=== PATIENT | male | born 1980 | race Caucasian/White ===

== ENCOUNTER → 2021-09-18 13:11 | Outpatient (BNVA) | payer MEDICAID, SELFPAY | PROVIDERS: Visit Provider Nurse Practitioner Family | DX: Z20.822 Contact with and (suspected) exposure to COVID-19 (principal); Z11.52 Encounter for screening for COVID-19 | CPT/HCPCS: 87635 ==

== ENCOUNTER 2021-12-08 11:37 | Outpatient (CLI) | payer MEDICAID, SELFPAY ==
--- NOTE | 2021-12-08 11:46 | XR_ITS ---
WS: [id number] XR cervical spine min 6V [id number] REASON FOR EXAM: M54.2 - Cervicalgia FINDINGS: Mild straightening of the normal lordosis of the cervical spine. No significant compression deformity or other focal vertebral body abnormality. Moderate narrowing of the intervertebral disc spaces C5-T1. This is most significant at C6-C7 and C7- T1. There is degenerative degenerative change in the facet joints at C7-T1. Mild to moderate uncinate 8 spurring bilaterally C5-T1. This is most prominent at C6-C7. There is a mild anterior subluxation of C4 on C5 with flexion. XR/XR cervical spine min 6V [id number] IMPRESSION: Multilevel cervical degenerative spondylosis as above.
== END 2021-12-08 11:38 | disposition home or self-care (01) ==
LOC: RAD 11:40
PROVIDERS: PCP Family Medicine; Visit Provider Family Medicine
DX: M47.812 Spondylosis without myelopathy or radiculopathy, cervical region (principal)
CPT/HCPCS: 72052

== ENCOUNTER 2022-01-05 11:03 | Emergency (ER) | payer BC, MEDICAID, SELFPAY ==
[2022-01-05 11:10] VITALS: BP 120/77; PULSE 79; RESP 16; TEMP 36.7; O2SAT 98; BMI 22.3
[2022-01-05 11:19] VITALS: BP 120/77; PULSE 79; RESP 16; TEMP 36.6; O2SAT 99
--- NOTE | 2022-01-05 11:19 | ED_ITS ---
HPI - Fall General: Chief Complaint: Fall Stated Complaint: Fell Time Seen by Provider: 01/05/22 11:17 Source: patient and family Mode of arrival: wheelchair Limitations: no limitations History of Present Illness: Patient is a nice 41-year-old male who presents to ED today with complaint of right shoulder and lower back pain following a slip and fall yesterday evening. Patient states he was going down icy stairs when he slipped and fell and landed directly onto his lower back. He states somehow he injured his right shoulder. Patient concerned because he has had a prior lower back surgery-does not know what type of surgery was performed. He states he has having pain to his right leg with ambulation. He denies striking his head or LOC. No neck or upper back pains. MD complaint: fall Onset (ago): hour(s) Fall from: down stairs (#) Fall witnessed: yes, by family Place fall occurred: home Loss of consciousness: None Prolonged down time: no Symptoms prior to fall: none Context: tripped/slipped (ice) Location of injury: back Location of injury - extremities: Right: shoulder Associated symptoms-after fall: Reports no associated symptoms; Denies abdominal pain, chest pain, headache(s), lightheadedness or neck pain Review of Systems Const: Denies: fever(s), chills, body aches, fatigue or malaise Eyes: Denies: change in vision or blurry vision Card: Denies: chest pain, palpitations, lightheadedness, syncope or pre- syncope Resp: Denies: dyspnea GI: Denies: abdominal pain Musc: Reports: back pain and joint pain (R shoulder); Denies: neck pain, extremity pain, extremity swelling, joint swelling, joint redness or joint warmth Neuro: Denies: headache(s), weakness in extremities, sensory changes, lack of coordination or frequent falls PFS ED PFSH: Medical History Sepsis Surgical History H/O skin graft History of back surgery Hx of right knee surgery Social History Smoking and tobacco status: current every day smoker Alcohol intake: never Household members: spouse Marital status: Current occupational status: employed 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 Special saeid needs: No Physical Exam Const: COMMON NORMALS: no acute distress, average body habitus, patient oriented x3, no limitations, healthy appearing, alert and well nourished ORIENTATION/CONSCIOUSNESS: Yes awake, Yes oriented to person, Yes oriented to place and Yes oriented to time HENMT: COMMON NORMALS: normocephalic and atraumatic HEAD & SCALP: normal to inspection, normocephalic and atraumatic FACE & SINUS: normal facial exam Neck/C-Spine: COMMON NORMALS: full ROM CERVICAL SPINE: Yes cervical ROM normal, No pain with cervical ROM, No Cervical spine tenderness, No step off deformity and No Paracervical muscle tenderness Chest: COMMONS NORMALS: normal inspection of the chest and normal palpation of entire chest wall Resp: COMMON NORMALS: normal respiratory effort and clear to auscultation bilaterally AUSCULTATION: clear to auscultation bilaterally Cardio: COMMON NORMALS: regular rate and regular rhythm RATE: regular rate RHYTHM: regular rhythm Back/Pelvis: THORACIC SPINE/UPPER BACK: Yes normal to inspection, Yes thoracic ROM normal and No thoracic spinal tenderness LUMBAR SPINE/LOWER BACK: Yes ROM limited, Yes lumbar spinal tenderness (lower lumbar) and No paraspinal muscle tenderness PELVIS: Yes buttocks normal SACROILIAC JOINTS: Yes SI joints normal Extremity: GENERAL: Yes normal exam except as noted RIGHT UPPER EXTREMITY: Yes shoulder joint (TTP anterior R shoulder) Right shoulder: Yes Right shoulder joint inspection exam (generalized inspection appears normal), Yes Right shoulder joint ROM exam (reports pain with flexion/abduction past about 20-30 degrees) and Yes Right shoulder joint neurovascular exam (normal) and Yes clavicle (normal/no deformity) Neuro: KELLI COMA SCALE: document GCS findings Den[place] coma scale eye opening: Spontaneous Den[place] coma scale verbal response: Orientated Kelli coma scale motor response: Obey commands Denison coma scale total score: 15 COMMON NORMALS: patient oriented x3, moves all extremities, no focal motor deficits and no sensory deficits noted SENSORIUM/ORIENTATION: Yes alert, Yes oriented to person, Yes oriented to place and Yes oriented to time Skin: COMMON NORMALS: no rashes or lesions noted GENERAL SKIN EXAM: no rashes or lesions noted TRAUMA: no lacerations or abrasions Course Vital Signs: Vital signs: Vital Signs Temperature 98 F 02/28/22 11:19 Pulse Rate 79 01/05/22 11:19 Respiratory Rate 16 01/05/22 11:19 Blood Pressure 120/77 01/05/22 11:19 Pulse Oximetry 99 01/05/22 11:19 MDM - Fall Medical Decision Making XR R shoulder and CT lumbar negative. Recommend he follow-up with primary care provider for further evaluation if symptoms persist past 1 to 2 weeks. Return to ED precautions verbally given to patient. Lab Data Radiology Impressions Lumbar Spine CT 01/05/22 11:24 IMPRESSION: 1. Minimal lumbar curve. No acute compression. No acute fractures. 2. Disc space narrowing worse L4-L5 and L5-S1. 3. Small central disc osteophyte protrusion L4-L5 with slight impingement traversing L5 nerve roots bilaterally. Mild RIGHT L4-L5 foraminal narrowing. 4. Central disc osteophyte protrusion with slight encroachment traversing S1 nerve roots bilaterally. 5. Mild RIGHT L3-L4 foraminal narrowing. 6. Mild to moderate facet arthropathy L3-L5. Shoulder X-Ray 01/05/22 11:24 IMPRESSION: No acute findings. Discharge Plan Discharge Patient Disposition: Home Clinical Impression: Fall from slipping on ice Qualifiers: Encounter type: initial encounter Qualified Code(s): W00.9XXA - Unspecified fall due to ice and snow, initial encounter Injury of right shoulder Qualifiers: Encounter type: initial encounter Qualified Code(s): S49.91XA - Unspecified injury of right shoulder and upper arm, initial encounter Contusion of lower back Qualifiers: Encounter type: initial encounter Qualified Code(s): S30.0XXA - Contusion of lower back and pelvis, initial encounter Condition: Stable Prescriptions: No Action methylprednisolone [Medrol (Kevin)] 4 mg tablets,dose pack See Rx Instructions PO PER PKG DIR Qty: 21 0RF Rx Instructions: PO PER PKG DIR ibuprofen 800 mg tablet 800 mg PO TID PRN (Reason: pain) Qty: 60 0RF baclofen 10 mg tablet 10 mg PO .qhs Qty: 30 1RF Discharge Orders: Discharge ED (Routine); Ordered 01/05/22 Ordered By: Nuvia Beauchamp Referrals: Constance Pollard MD [Primary Care Provider] - Coding Level of Care Code ED Geological Drafter for Chg Fwd Exam Expanded Problem Focused
--- NOTE | 2022-01-05 11:24 | XRR_ITS ---
PROCEDURE INFORMATION: Exam: XR Right Shoulder Exam date and time: 01/05/2022 11:24 AM Age: 41 years old Clinical indication: Injury or trauma; Fall; Blunt trauma (contusions or hematomas); Right; Patient HX: --slipped and fell down the stairs last night; PT complains of pain on superior RT shoulder; Additional info: Trauma/fall/pain TECHNIQUE: Imaging protocol: XR Right shoulder. Views: 2 or more views. COMPARISON: CR XR cervical spine min 6V [id number] 12/08/2021 11:50 AM FINDINGS: Bones/joints: Negative for acute bony abnormality Soft tissues: Normal. XR/XR shoulder RT min 2V* [id number] IMPRESSION: No acute findings.
--- NOTE | 2022-01-05 11:24 | CT_ITS ---
WS: [id number] CT LUMBAR SPINE TECHNIQUE: Noncontrast CT of the lumbar spine with coronal and sagittal reformatted images. CLINICAL INFORMATION: fall COMPARISON: None. DLP: 1756.[address] scans at [facility] use at least one of these dose optimization techniques: automated e xposure control; mA and/or kV adjustment per patient size (includes targeted exams where dose is matc hed to clinical indication); or iterative reconstruction. FINDINGS: Mild lumbar curve. Disc space narrowing worse L4-L5 and L5-S1. No acute compression fractures. Normal transverse processes. No acute fractures. Partially visualized pelvic bony structures appear normal. Adrenal glands are normal. L1-L2: Normal. L2-L3: Normal. L3-L4: Mild annular bulging. Mild facet arthropathy. Spinal canal and foramen are patent. L4-L5: Mild annular bulging with small central disc osteophyte protrusion. Slight effacement of ventr al thecal sac. Narrowing of the subarticular recess with encroachment traversing L5 nerve roots. Mild RIGHT foraminal narrowing. Moderate facet arthropathy. L5-S1: Shallow central disc osteophyte protrusion. Slight impingement traversing S1 nerve roots bilat erally. Foramen are patent. Mild facet arthropathy. Visualized pelvic bony structures: Normal. Paravertebral soft tissues: Normal. CT/CT lumbar spine wo con* [id number] IMPRESSION: 1. Minimal lumbar curve. No acute compression. No acute fractures. 2. Disc space narrowing worse L4-L5 and L5-S1. 3. Small central disc osteophyte protrusion L4-L5 with slight impingement heladio ersing L5 nerve roots bilaterally. Mild RIGHT L4-L5 foraminal narrowing. 4. Central disc osteophyte protrusion with slight encroachment traversing S1 n erve roots bilaterally. 5. Mild RIGHT L3-L4 foraminal narrowing. 6. Mild to moderate facet arthropathy L3-L5.
== END 2022-01-05 12:48 | disposition home or self-care (01) ==
PROVIDERS: Emergency Provider Physician Assistant; PCP Family Medicine
DX: S30.0XXA Contusion of lower back and pelvis, initial encounter (principal); S49.91XA Unspecified injury of right shoulder and upper arm, initial encounter; F17.210 Nicotine dependence, cigarettes, uncomplicated; W00.1XXA Fall from stairs and steps due to ice and snow, initial encounter
CPT/HCPCS: 72131; 73030; 99282

== ENCOUNTER 2022-01-24 17:11 | Emergency (ER) | payer BC, MEDICAID, SELFPAY ==
[2022-01-24 17:23] VITALS: BP 103/69; PULSE 69; RESP 18; TEMP 36.6; O2SAT 93; BMI 22.3
--- NOTE | 2022-01-24 17:32 | XRR_ITS ---
PROCEDURE INFORMATION: Exam: XR Left Hand Exam date and time: 01/24/2022 4:37 PM Age: 41 years old Clinical indication: Injury or trauma; Other: Smashed 5th finger; Blunt trauma (contusions or hematomas); Left; Little finger; Additional info: 5th digit smash injury TECHNIQUE: Imaging protocol: XR Left hand. Views: 3 or more views. COMPARISON: No relevant prior studies available. FINDINGS: Bones/joints: Normal. Soft tissues: Normal. XR/XR hand LT min 3V* [id number] IMPRESSION: No acute findings.
--- NOTE | 2022-01-24 17:33 | W.ED.EXTPRO ---
HPI - Extremity Problem General: Chief complaint: Extremity Injury, Upper Stated complaint: Cut fingers Left hand Time Seen by Provider: 01/24/22 17:30 History of Present Illness: Patient is a 41-year-old male comes to the ED with left pinky injury. Injury occurred just prior to arrival. Patient says he was working on yard outside and a Tractor Disc he picked up, fell and smashed his left pinky. Injury caused a laceration to his pinky. Not updated on tetanus. He has full range of motion of pinky but does cause some pain. Associated symptoms: Deny chest pain, fever(s) or rash Review of Systems Const: Denies: fever(s), chills or fatigue Eyes: Denies: change in vision or eye discomfort ENMT: Denies: throat pain, odynophagia, nasal discharge or nasal congestion Card: Denies: chest pain, palpitations, edema, swelling of feet/ankles, dyspnea on exertion or orthopnea Resp: Denies: dyspnea, productive cough or non-productive cough GI: Denies: abdominal pain, nausea, vomiting, diarrhea, constipation or hematochezia : Denies: flank pain, difficulty urinating, dysuria or hematuria Musc: Denies: neck pain, back pain or extremity swelling Skin/Breast: Reports: new lesions (laceration to left pinky); Denies: rash Neuro: Denies: headache(s), numbness in extremities or weakness in extremities [facility] ED PFSH: Medical History Sepsis Surgical History H/O skin graft History of back surgery Hx of right knee surgery Social History Smoking and tobacco status: current every day smoker Alcohol intake: never Household members: spouse Marital status: Current occupational status: employed 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 Special saeid needs: No Physical Exam Const: COMMON NORMALS: patient oriented x3 and alert GENERAL APPEARANCE: cooperative and comfortable HENMT: COMMON NORMALS: normocephalic HEAD & SCALP: normocephalic MOUTH: Normal oral and palatal mucosa present THROAT: posterior oropharynx normal and uvula midline Neck/C-Spine: COMMON NORMALS: supple GENERAL: Yes normal visual inspection Resp: COMMON NORMALS: normal respiratory effort, No retractions, No use of accessory muscles and clear to auscultation bilaterally AUSCULTATION: clear to auscultation bilaterally Cardio: COMMON NORMALS: regular rate, regular rhythm, S1 normal heart sound present, S2 normal heart sound present, No gallops present (Cardio), No clicks present (Cardio), No murmurs present (Cardio) and Peripheral pulses 2+ throughout RATE: regular rate RHYTHM: regular rhythm HEART SOUNDS: S1 normal heart sound present and S2 normal heart sound present PERIPHERAL PULSES: Peripheral pulses 2+ throughout GI: COMMON NORMALS: Normal to inspection, nondistended, normoactive bowel sounds present, Soft to palpation, non-tender and no masses PALPATION: Yes Soft to palpation : COMMON NORMALS: Yes no CVA tenderness BLADDER/KIDNEY EXAM: Yes no CVA tenderness Back/Pelvis: COMMON NORMALS: no CVA tenderness Extremity: NARRATIVE EXTREMITY EXAM: Left hand?fifth digit. Irregular shaped laceration to proximal region of fifth digit approximately 2.5 cm in length. No nail or nailbed damage noted. Full range of motion. Neurovascular tact. Neuro: COMMON NORMALS: patient oriented x3 and moves all extremities SENSORIUM/ORIENTATION: Yes alert Skin: GENERAL SKIN EXAM: dry skin Procedures Laceration Laceration 1: Site: hand (5th digit) Size (cm): 2.5 Description: irregular Depth: simple, single layer Local Anesthetic: lidocaine 2% (Digital nerve block performed) Amount of anesthesia used (mL): 6 Pre-repair: irrigated extensively (Irrigated extensively with normal saline and beta iodine wash.) Skin layer closed with: nylon Size (cm): 4-0 Number of sutures: 7 Technique: simple, interrupted Nerve Block Nerve Block 1: Time out performed: Yes Local Anesthetic: lidocaine 2% Amount of anesthesia used (mL): 6 Side: left Nerve Blocks: digital (Fifth digit) Procedure Successful: Yes Patient Tolerated Procedure: well Complications: none Course Vital Signs: Vital signs: Vital Signs Temperature 97.9 F 01/24/22 17:23 Pulse Rate 69 01/24/22 17:23 Respiratory Rate 18 01/24/22 17:23 Blood Pressure 103/69 01/24/22 17:23 Pulse Oximetry 93 01/24/22 17:23 MDM - Extremity (Nontraumatic) Medical Decision Making Patient is a 41-year-old male comes to the ED with a injury to left pinky. He has a laceration to proximal region of fifth digit on left hand. No nailbed or nail damage seen. He has full range of motion. Neurovascular tact. Vitals are stable. X-ray shows no acute fractures but notes some soft tissue laceration injury. Laceration was irrigated extensively with normal saline and Betadine iodine solution. Digital nerve block used for pain control. 7 sutures were placed to close laceration site. Patient was given tetanus shot while here in the ED. He was diagnosed with a finger laceration and discharged home with a prescription for cephalexin. He was told to have sutures removed in the next 7 to 10 days. Return to ED precautions given. Patient was instructed on how to care for laceration site. Patient understood and agreed with plan. Lab Data Radiology Impressions Hand X-Ray 01/24/22 17:32 IMPRESSION: No acute findings. ADDENDUM: 01/24/22 [id number] Impression: Mild soft tissue laceration over the radial volar aspect of the little finger just proximal to the PIP level. Discharge Plan Discharge Patient Disposition: Home Clinical Impression: Finger laceration Qualifiers: Encounter type: initial encounter Finger: little finger Damage to nail status: without damage Foreign body presence: without foreign body Laterality: left Qualified Code(s): S61.217A - Laceration without foreign body of left little finger without damage to nail, initial encounter Condition: Stable Prescriptions: New Triple Antibiotic 3.5mg-400 unit- 5,000 unit/gram ointment 1 applic topical DAILY PRN (Reason: wound healing) Qty: 15 0RF cephalexin 500 mg capsule 500 mg PO Q6H 4 Days Qty: 16 0RF Celebrex 100 mg capsule 100 mg PO BID PRN (Reason: pain) Qty: 12 0RF No Action methylprednisolone [Medrol (Kevin)] 4 mg tablets,dose pack See Rx Instructions PO PER PKG DIR Qty: 21 0RF Rx Instructions: PO PER PKG DIR ibuprofen 800 mg tablet 800 mg PO TID PRN (Reason: pain) Qty: 60 0RF baclofen 10 mg tablet 10 mg PO .qhs Qty: 30 1RF Discharge Orders: Discharge ED (Routine); Ordered 01/24/22 Ordered By: Vladimir Paulson Referrals: Constance Pollard MD [Primary Care Provider] - Discharge Diet: Regular Discharge Activity: Increase activity as tolerated Patient Instructions: Finger Laceration (ED) Activity Restrictions/Additional Instructions: Take full course of antibiotics as prescribed. Keep laceration site clean and dry for the next 48 hours. Then after that you can clean and re-bandage daily. Apply triple antibiotic ointment on laceration daily as well. Watch for signs of infection such as redness, warmth, increased tenderness and puslike drainage. If you see the signs of infection return to the ED, urgent care or PCP for reevaluation. call your PCP to schedule a follow-up appointment for reevaluation and suture removal in about 7-10 days. Follow discharge plans as discussed. You can return to the ED if symptoms worsen. Coding Level of Care Code ED Optical Manufacturing Technician for Freda Hardy Exam Comprehensive
[2022-01-24] MEDS: lidocaine 2% INJ 20 mL INJECTION (17:58)
[2022-01-24] MEDS: HYDROcodone-acetaminophen 7.5-325 mg Tablet 1 TAB PO (18:04)
[2022-01-24] MEDS: tetanus-dipt-pertussis 0.5 mL SDV IM (18:05)
[2022-01-24] MEDS: cephALEXin 500 mg Capsule PO (19:02)
[2022-01-24] MEDS: neomycin-poly-bacitracin oint 0.9 gm Pkt 1 APPLIC TOPICAL (19:03)
== END 2022-01-24 19:23 | disposition home or self-care (01) ==
PROVIDERS: Emergency Provider Physician Assistant; PCP Family Medicine
DX: S61.217A Laceration without foreign body of left little finger without damage to nail, initial encounter (principal); F17.210 Nicotine dependence, cigarettes, uncomplicated; W20.8XXA Other cause of strike by thrown, projected or falling object, initial encounter; Z23 Encounter for immunization
CPT/HCPCS: 12001; 73130; 90471; 90715; 99283; A6446

== ENCOUNTER 2022-08-10 11:51 | Outpatient (CLI) | payer BC, MEDICAID, SELFPAY ==
--- NOTE | 2022-08-10 12:01 | XR_ITS ---
WS: [id number] XR lumbar spine f/e only [id number] REASON FOR EXAM: POSTLAMINECTOMY SYNDROME FINDINGS: Normal lordosis on the lateral view. No significant vertebral body abnormality. Mild narrowing of the L3-L4 disc space. Moderate narrowing of the L4-L5 and L5-S1 disc space with end plate sclerosis and small marginal osteophytosis. No significant listhesis in the neutral position. No abnormal vertebral body movement with flexion and extension. XR/XR lumbar spine f/e only [id number] IMPRESSION: Degenerative spondylosis the lumbar spine as above.
== END 2022-08-10 11:52 | disposition home or self-care (01) ==
LOC: RAD 11:54
PROVIDERS: PCP Family Medicine; Visit Provider Nurse Practitioner
DX: M96.1 Postlaminectomy syndrome, not elsewhere classified (principal); M47.896 Other spondylosis, lumbar region
CPT/HCPCS: 72120

== ENCOUNTER → 2022-08-17 09:55 | Outpatient (BNVA) | payer BC, MEDICAID, SELFPAY | PROVIDERS: PCP Family Medicine; Visit Provider Nurse Practitioner Family | DX: J40 Bronchitis, not specified as acute or chronic (principal); J02.8 Acute pharyngitis due to other specified organisms; B96.89 Other specified bacterial agents as the cause of diseases classified elsewhere; J32.0 Chronic maxillary sinusitis | CPT/HCPCS: 71046; 80053 ==

== ENCOUNTER 2022-11-09 13:49 | Emergency (ER) | payer BC, MEDICAID, SELFPAY ==
[2022-11-09 14:37] VITALS: BP 129/71; PULSE 76; RESP 14; TEMP 36.7; O2SAT 98
--- NOTE | 2022-11-09 15:57 | XRR_ITS ---
PROCEDURE INFORMATION: Exam: XR Lumbosacral Spine Exam date and time: 11/09/2022 4:00 PM Age: 42 years old Clinical indication: Low back pain TECHNIQUE: Imaging protocol: Radiologic exam of the lumbosacral spine. Views: 2 or 3 views. COMPARISON: CR XR lumbar spine f/e only [id number] 08/10/2022 12:05 PM FINDINGS: Bones/joints: No acute fracture. Normal alignment. Degenerative disc disease at L4-L5 and L5-S1. Soft tissues: Unremarkable. XR/XR lumbar spine 2-3V* [id number] IMPRESSION: 1. No acute findings. 2. Degenerative disc disease at L4-L5 and L5-S1.
--- NOTE | 2022-11-09 15:57 | W.ED.BACK ---
HPI - Back Pain/Injury General: Chief Complaint: Back Pain/Injury Stated Complaint: back pain, Right leg numbness and pain Time Seen by Provider: 11/09/22 15:57 Source: patient Mode of arrival: ambulatory Limitations: no limitations History of Present Illness: Patient is a 42-year-old male who presents to ED today for evaluation of lower back pain. Patient states pain initially began 3 to 4 days ago after carrying a large tub of ice. Patient states yesterday stepped down wrong on the right leg and agustín his back even further. He is complaining of some paresthesias to the right lower leg and foot. Patient is ambulatory. He does not complain of any bony tenderness to the right lower extremity. He does not complain of saddle anesthesia or bowel or bladder dysfunction. MD elicited complaint: back pain Pertinent past history: prior back pain and back surgery Onset (ago): day(s) Timing: constant Similar Symptoms Previously: Yes Location: lumbar spine and right lower back Radiation: right leg below the knee Exacerbating factors: movement, walking and lifting Context: while lifting Associated symptoms: Deny abdominal pain, chills, dysuria, fatigue, fever(s) or hematuria Review of Systems Const: Denies: fever(s), chills, body aches, fatigue or malaise Card: Denies: chest pain Resp: Denies: dyspnea GI: Denies: abdominal pain : Denies: flank pain, dysuria or hematuria Musc: Reports: back pain; Denies: neck pain, extremity pain or joint pain Skin/Breast: Denies: rash Neuro: Denies: headache(s), numbness in extremities or weakness in extremities [facility] ED PFSH: Medical History Sepsis Surgical History H/O skin graft History of back surgery Hx of right knee surgery Social History Smoking and tobacco status: former smoker Alcohol intake: never Household members: spouse Marital status: Current occupational status: employed 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 Special saeid needs: No Physical Exam Const: COMMON NORMALS: no acute distress, patient oriented x3, no limitations and alert GENERAL APPEARANCE: cooperative ORIENTATION/CONSCIOUSNESS: Yes awake, Yes oriented to person, Yes oriented to place and Yes oriented to time HENMT: COMMON NORMALS: normocephalic and atraumatic HEAD & SCALP: normal to inspection, normocephalic and atraumatic Back/Pelvis: THORACIC SPINE/UPPER BACK: Yes normal to inspection, Yes thoracic ROM normal, No thoracic spinal tenderness, No paraspinal muscle tenderness and No paraspinal muscle spasm LUMBAR SPINE/LOWER BACK: Yes normal to inspection, Yes ROM limited, Yes lumbar spinal tenderness, Yes paraspinal muscle tenderness Lumbar paraspinal muscle tenderness: right, No paraspinal muscle spasm and Yes straight leg raise negative bilaterally PELVIS: Yes buttocks normal SACROILIAC JOINTS: Yes SI joint(s) abnormal SI joint details: tender to palpation (right) SACRUM: no tenderness COCCYX: no tenderness Extremity: COMMON NORMALS: normal to inspection, full ROM, capillary refill normal, no calf tenderness and no pedal edema GENERAL: Yes normal exam except as noted Neuro: COMMON NORMALS: patient oriented x3, moves all extremities, no focal motor deficits, no sensory deficits noted and gait normal SENSORIUM/ORIENTATION: Yes alert, Yes oriented to person, Yes oriented to place and Yes oriented to time Skin: COMMON NORMALS: no rashes or lesions noted GENERAL SKIN EXAM: no rashes or lesions noted Course Vital Signs: Vital signs: Vital Signs Temperature 98.0 F 11/09/22 14:37 Pulse Rate 76 11/09/22 14:37 Respiratory Rate 14 11/09/22 14:37 Blood Pressure 129/71 11/09/22 14:37 Pulse Oximetry 98 11/09/22 14:37 Oxygen Delivery Me thod 11/09/22 14:37 MDM - Back Pain/Injury Medical Decision Making Prelim read of XR negative. Will place on NSAIDS/steroids. He has an appointment with pain management tomorrow. Recommend he can follow-up with them and/or primary care if symptoms do not seem to be improving. Discharge Plan Discharge Patient Disposition: Home Clinical Impression: Lumbar radiculopathy Condition: Stable Prescriptions: New prednisone 10 mg tablet 60 mg PO DAILY 5 Days Qty: 30 0RF ibuprofen 800 mg tablet 800 mg PO Q8H PRN (Reason: pain) Qty: 20 0RF No Action albuterol sulfate [ProAir HFA] 90 mcg/actuation HFA aerosol inhaler 2 puff inhalation 6XD PRN (Reason: shortness of breath or wheezing) Qty: 8.5 6RF budesonide-formoterol [Symbicort] 160-4.5 mcg/actuation HFA aerosol inhaler 2 puff inhalation BID Qty: 10.2 6RF ibuprofen 800 mg tablet 800 mg PO TID PRN (Reason: pain) Qty: 60 0RF promethazine-DM 6.25-15 mg/5 mL syrup 5 - 10 ml PO Q6H PRN (Reason: cough) Qty: 200 1RF cephalexin 500 mg capsule 500 mg PO BID 10 Days Qty: 20 0RF cetirizine [Zyrtec] 10 mg tablet 10 mg PO DAILY 90 Days Qty: 90 1RF Discharge Orders: Discharge ED (Routine); Ordered 11/09/22 Ordered By: Nuvia Beauchamp Referrals: Constance Pollard MD [Primary Care Provider] - Coding Level of Care Code ED Medical Staff Assistant for Chg Fwd Exam Detailed
== END 2022-11-09 16:41 | disposition home or self-care (01) ==
PROVIDERS: Emergency Provider Physician Assistant; PCP Family Medicine
DX: M54.16 Radiculopathy, lumbar region (principal); Z87.891 Personal history of nicotine dependence
CPT/HCPCS: 72100; 99283

== ENCOUNTER → 2023-02-11 11:28 | Outpatient (BNVA) | payer MEDICAID, SELFPAY | PROVIDERS: PCP Family Medicine; Visit Provider Nurse Practitioner Family | DX: J30.2 Other seasonal allergic rhinitis (principal); S60.450A Superficial foreign body of right index finger, initial encounter; X58.XXXA Exposure to other specified factors, initial encounter | CPT/HCPCS: 73130; 80053 ==